=== PATIENT | male | born 1955 | race African-American/Black ===

== ENCOUNTER 2024-07-09 10:17 | Emergency (ER) | payer MEDICAID ==
[~2024-07-09] VITALS: Ht 188 cm; Wt 65.8 kg
[2024-07-09 10:21] VITALS: O2SAT 100
[2024-07-09] MEDS ORDERED: IBUP-2028 MT (10:53)
[2024-07-09 11:03] VITALS: BP 119/71; PULSE 71; RESP 16; TEMP 36.78072; O2SAT 100
== END 2024-07-09 11:04 | disposition home or self-care (01) ==
LOC: ER 10:17
DX: K62.89 Other specified diseases of anus and rectum (principal); W44.F4XA Insect entering into or through a natural orifice, initial encounter
CPT/HCPCS: 99282

== ENCOUNTER 2024-07-11 08:14 | Emergency (ER) | payer MEDICAID ==
[~2024-07-11] VITALS: Ht 188 cm; Wt 68.0 kg
[~2024-07-11 08:14] MED LIST: IBUP-2028 MT
[2024-07-11 08:17] VITALS: BP 132/84; PULSE 50; RESP 16; TEMP 98; O2SAT 95
[2024-07-11] MEDS ORDERED: MAG355OR21 MT (13:13)
[2024-07-11] MEDS ORDERED: PHEN51CR24 TP (13:13)
== END 2024-07-11 13:59 | disposition home or self-care (01) ==
LOC: ER 08:26
DX: K52.9 Noninfective gastroenteritis and colitis, unspecified (principal); K64.9 Unspecified hemorrhoids; Z79.899 Other long term (current) drug therapy
CPT/HCPCS: 74176; 99284

== ENCOUNTER 2024-07-14 04:59 | Emergency (ER) | payer MEDICAID ==
[~2024-07-14] VITALS: Ht 182.9 cm; Wt 64.0 kg
[~2024-07-14 04:59] MED LIST changes: +MAG355OR21 MT; +PHEN51CR24 TP
[2024-07-14 05:04] VITALS: O2SAT 99
[2024-07-14 05:10] VITALS: BP 101/67; PULSE 72; RESP 18; TEMP 98; O2SAT 99
[2024-07-14 05:35] LABS: BASOPHILS % 0.8 % (0.0-2.0); EOSINOPHILS % 7.8 % (0.0-5.0); HEMOGLOBIN. 14.3 g/dL (14.0-18.0); LYMPHOCYTES % 24.7 % (20.0-50.0); MEAN CORPUSCULAR HEMOGLOBIN 30.6 pg (28.0-32.0); MEAN CORPUSCULAR HGB CONC 33.2 g/dL (31.0-37.0); MEAN CORPUSCULAR VOLUME 92.3 fL (80.0-94.0); MEAN PLATELET VOLUME 7.4 fl (7.4-10.4); MONOCYTES % 9.7 % (2.0-8.0); PLATELET 257 x1000/uL (130-400); RED BLOOD CELL COUNT 4.66 mill/uL (4.7-6.1); RED CELL DISTRIBUTION WIDTH 15.2 % (11.6-14.6); WHITE BLOOD COUNT 6.4 x1000/uL (4.5-11.0)
[2024-07-14 05:58] LABS: CHLORIDE 108 mEq/L (98-107); POTASSIUM 4.1 mEq/L (3.5-5.1); SODIUM 140 mEq/L (136-145)
[2024-07-14 05:59] LABS: CARBON DIOXIDE 27 mEq/L (21-32)
[2024-07-14 06:00] LABS: CALCIUM 9.6 mg/dL (8.7-10.4)
[2024-07-14 06:05] LABS: GLUCOSE 95 mg/dL (70-105); UREA NITROGEN BLOOD 15 mg/dL (9-23)
[2024-07-14 06:06] LABS: ALANINE AMINOTRANSFERASE 16 IU/L (10-49); ALBUMIN 4.2 g/dL (3.2-4.8); ASPARTATE AMINOTRANSFERASE 22 IU/L (<34)
[2024-07-14 06:07] LABS: BILIRUBIN TOTAL 0.4 mg/dL (0.1-1.0); PROTEIN TOTAL 7.1 g/dL (6.0-8.3)
[2024-07-14 06:29] LABS: BILIRUBIN DIRECT < 0.1 mg/dL (<=3.0)
== END 2024-07-14 07:13 | disposition home or self-care (01) ==
LOC: ER 05:10
DX: R10.9 Unspecified abdominal pain (principal)
CPT/HCPCS: 36415; 80048; 80076; 85025; 99283

== ENCOUNTER 2024-07-15 04:33 | Emergency (ER) | payer MEDICAID ==
[~2024-07-15] VITALS: Ht 182.9 cm; Wt 60.6 kg
[2024-07-15 05:09] VITALS: TEMP 98.6; O2SAT 97
[2024-07-15 06:00] VITALS: BP 114/72; PULSE 79; RESP 15
[2024-07-15] MEDS: KETOROLAC 30MG/ML VIAL IV STA (06:00)
[2024-07-15 06:25] LABS: BASOPHILS % 0.8 % (0.0-2.0); EOSINOPHILS % 3.9 % (0.0-5.0); HEMATOCRIT. 45.2 % (42.0-52.0); HEMOGLOBIN. 14.7 g/dL (14.0-18.0); LYMPHOCYTES % 18.1 % (20.0-50.0); MEAN CORPUSCULAR HEMOGLOBIN 30.1 pg (28.0-32.0); MEAN CORPUSCULAR HGB CONC 32.4 g/dL (31.0-37.0); MEAN CORPUSCULAR VOLUME 92.8 fL (80.0-94.0); MEAN PLATELET VOLUME 8.1 fl (7.4-10.4); MONOCYTES % 7.9 % (2.0-8.0); NEUTROPHILS % 69.3 % (40.0-76.0); PLATELET 261 x1000/uL (130-400); RED BLOOD CELL COUNT 4.88 mill/uL (4.7-6.1); RED CELL DISTRIBUTION WIDTH 15.1 % (11.6-14.6); WHITE BLOOD COUNT 6.1 x1000/uL (4.5-11.0)
[2024-07-15 06:30] LABS: CHLORIDE 106 mEq/L (98-107); POTASSIUM 4.3 mEq/L (3.5-5.1); SODIUM 140 mEq/L (136-145)
[2024-07-15 06:31] LABS: CARBON DIOXIDE 30 mEq/L (21-32)
[2024-07-15 06:36] LABS: CREATININE 0.9 mg/dL (0.6-1.3); GLUCOSE 83 mg/dL (70-105)
[2024-07-15 06:37] LABS: UREA NITROGEN BLOOD 13 mg/dL (9-23)
[2024-07-15 06:38] LABS: ALANINE AMINOTRANSFERASE 15 IU/L (10-49); ALBUMIN 4.4 g/dL (3.2-4.8); ASPARTATE AMINOTRANSFERASE 19 IU/L (<34)
[2024-07-15 06:39] LABS: BILIRUBIN DIRECT 0.2 mg/dL (<=3.0); BILIRUBIN TOTAL 0.6 mg/dL (0.1-1.0); PROTEIN TOTAL 7.1 g/dL (6.0-8.3); TROPONIN I HIGH SENSITIVITY 5 ng/L (3.0-53)
== END 2024-07-15 07:44 | disposition home or self-care (01) ==
LOC: ER 04:53
DX: R07.89 Other chest pain (principal); R10.9 Unspecified abdominal pain
CPT/HCPCS: 36415; 71045; 80048; 80076; 84484; 85025; 93005; 99285; J1885

== ENCOUNTER 2024-07-22 19:13 | Emergency (ER) | payer MEDICAID ==
[~2024-07-22] VITALS: Ht 188 cm; Wt 64.3 kg
[2024-07-22 19:29] VITALS: O2SAT 99
[2024-07-23 01:06] LABS: BASOPHILS % 0.4 % (0.0-2.0); EOSINOPHILS % 5.2 % (0.0-5.0); HEMOGLOBIN. 14.5 g/dL (14.0-18.0); LYMPHOCYTES % 28.8 % (20.0-50.0); MEAN CORPUSCULAR HGB CONC 33.6 g/dL (31.0-37.0); MEAN CORPUSCULAR VOLUME 92.3 fL (80.0-94.0); MEAN PLATELET VOLUME 7.5 fl (7.4-10.4); MONOCYTES % 8.6 % (2.0-8.0); PLATELET 271 x1000/uL (130-400); RED BLOOD CELL COUNT 4.66 mill/uL (4.7-6.1); RED CELL DISTRIBUTION WIDTH 14.8 % (11.6-14.6); WHITE BLOOD COUNT 6.1 x1000/uL (4.5-11.0)
[2024-07-23 01:17] LABS: CHLORIDE 104 mEq/L (98-107); POTASSIUM 4.1 mEq/L (3.5-5.1); SODIUM 137 mEq/L (136-145)
[2024-07-23 01:18] LABS: CALCIUM 9.8 mg/dL (8.7-10.4); CARBON DIOXIDE 28 mEq/L (21-32)
[2024-07-23 01:23] LABS: CREATININE 0.8 mg/dL (0.6-1.3); GLUCOSE 72 mg/dL (70-105); UREA NITROGEN BLOOD 14 mg/dL (9-23)
[2024-07-23 01:24] LABS: TROPONIN I HIGH SENSITIVITY 4 ng/L (3.0-53)
[2024-07-23 01:25] LABS: ALANINE AMINOTRANSFERASE 14 IU/L (10-49); ALBUMIN 4.2 g/dL (3.2-4.8); ASPARTATE AMINOTRANSFERASE 21 IU/L (<34); BILIRUBIN DIRECT 0.1 mg/dL (<=3.0); BILIRUBIN TOTAL 0.5 mg/dL (0.1-1.0)
[2024-07-23 01:26] LABS: PROTEIN TOTAL 6.9 g/dL (6.0-8.3)
[2024-07-23 01:54] LABS: D-DIMER 0.24 mg/L FEU (<0.50); PROTHROMBIN TIME 10.7 sec (9.6-11.0)
[2024-07-23 03:42] LABS: CLARITY URINE CLEAR (CLEAR); COLOR URINE YELLOW (YELLOW); GLUCOSE URINE NEGATIVE (NEGATIVE); KETONES URINE NEGATIVE (NEGATIVE); LEUKOCYTE ESTERASE URINE TRACE (NEGATIVE); NITRITE URINE POSITIVE (NEGATIVE); OCCULT BLOOD URINE NEGATIVE (NEGATIVE); PH URINE 5.5 (4.5-8.0); PROTEIN URINE TRACE (NEGATIVE); SPECIFIC GRAVITY URINE 1.022 (1.005-1.030)
[2024-07-23] MEDS ORDERED: POLY17PO3 MT (05:23)
[2024-07-23 05:40] VITALS: BP 110/68; PULSE 74; RESP 16; TEMP 36.94740; O2SAT 100
[2024-07-23 05:40] LABS: RBC URINE 0-2 /hpf (0-2); SQUAMOUS EPITHELIAL CELL URINE FEW /lpf (RARE/1+); WBC URINE 0-2 /hpf (0-2)
[2024-07-23 05:42] LABS: BACTERIA URINE 3+
[2024-07-23] MEDS ORDERED: SULF1TAB48 MT (13:54)
== END 2024-07-23 05:40 | disposition home or self-care (01) ==
LOC: ER 19:13
DX: N39.0 Urinary tract infection, site not specified (principal)
CPT/HCPCS: 36415; 71045; 74176; 93005; 99284; 99285

== ENCOUNTER 2024-08-12 08:01 | Emergency (ER) | payer MEDICAID ==
[~2024-08-12] VITALS: Ht 188 cm; Wt 63.5 kg
[~2024-08-12 08:01] MED LIST changes: +POLY17PO3 MT; +SULF1TAB48 MT
[2024-08-12 08:03] VITALS: BP 112/76; TEMP 98; O2SAT 99
[2024-08-12 08:11] VITALS: PULSE 75; RESP 18; O2SAT 93
[2024-08-12] MEDS ORDERED: PERM60CR4 TP (08:30)
== END 2024-08-12 08:38 | disposition home or self-care (01) ==
LOC: ER 08:01
DX: R10.9 Unspecified abdominal pain (principal); Z79.899 Other long term (current) drug therapy; Z59.00 Homelessness unspecified
CPT/HCPCS: 99282

== ENCOUNTER 2024-08-12 18:15 | Emergency (ER) | payer MEDICAID ==
[~2024-08-12] VITALS: Ht 188 cm; Wt 63.5 kg
[~2024-08-12 18:15] MED LIST changes: +PERM60CR4 TP
[2024-08-12 18:20] VITALS: BP 108/72; PULSE 97; RESP 18; TEMP 98.1; O2SAT 98; O2SAT 99
== END 2024-08-12 19:20 ==
LOC: ER 18:15
DX: R10.9 Unspecified abdominal pain (principal); Z53.21 Procedure and treatment not carried out due to patient leaving prior to being seen by health care provider

== ENCOUNTER 2024-08-13 01:57 | Emergency (ER) | payer MEDICAID ==
[~2024-08-13] VITALS: Ht 188 cm; Wt 66.1 kg
[2024-08-13 02:22] VITALS: TEMP 36.66960; O2SAT 100
[2024-08-13 02:26] VITALS: BP 120/78; PULSE 76; RESP 18; O2SAT 100
[2024-08-13 02:52] VITALS: TEMP 98
[2024-08-13] MEDS: ACETAMINOPHEN 325MG TABLET PO ONE (02:52)
[2024-08-13 03:06] LABS: BASOPHILS % 0.7 % (0.0-2.0); HEMATOCRIT. 44.5 % (42.0-52.0); HEMOGLOBIN. 14.8 g/dL (14.0-18.0); LYMPHOCYTES % 21.6 % (20.0-50.0); MEAN CORPUSCULAR HEMOGLOBIN 30.9 pg (28.0-32.0); MEAN CORPUSCULAR HGB CONC 33.3 g/dL (31.0-37.0); MEAN PLATELET VOLUME 7.2 fl (7.4-10.4); MONOCYTES % 7.6 % (2.0-8.0); NEUTROPHILS % 67.1 % (40.0-76.0); PLATELET 246 x1000/uL (130-400); RED BLOOD CELL COUNT 4.79 mill/uL (4.7-6.1); RED CELL DISTRIBUTION WIDTH 15.6 % (11.6-14.6); WHITE BLOOD COUNT 6.2 x1000/uL (4.5-11.0)
[2024-08-13 03:13] LABS: CHLORIDE 106 mEq/L (98-107); POTASSIUM 4.1 mEq/L (3.5-5.1); SODIUM 142 mEq/L (136-145)
[2024-08-13 03:14] LABS: CALCIUM 10.1 mg/dL (8.7-10.4); CARBON DIOXIDE 32 mEq/L (21-32)
[2024-08-13 03:19] LABS: CREATININE 1.2 mg/dL (0.6-1.3); GLUCOSE 88 mg/dL (70-105); UREA NITROGEN BLOOD 16 mg/dL (9-23)
[2024-08-13 03:21] LABS: ALANINE AMINOTRANSFERASE 23 IU/L (10-49); ALBUMIN 4.6 g/dL (3.2-4.8); ASPARTATE AMINOTRANSFERASE 29 IU/L (<34); BILIRUBIN TOTAL 0.5 mg/dL (0.1-1.0); PROTEIN TOTAL 7.2 g/dL (6.0-8.3); TROPONIN I HIGH SENSITIVITY 7 ng/L (3.0-53)
[2024-08-13 03:47] LABS: CLARITY URINE CLEAR (CLEAR); COLOR URINE YELLOW (YELLOW); GLUCOSE URINE NEGATIVE (NEGATIVE); KETONES URINE NEGATIVE (NEGATIVE); LEUKOCYTE ESTERASE URINE NEGATIVE (NEGATIVE); NITRITE URINE NEGATIVE (NEGATIVE); OCCULT BLOOD URINE NEGATIVE (NEGATIVE); PROTEIN URINE NEGATIVE (NEGATIVE); UROBILINOGEN URINE 0.2 E.U./dL (0.2-1.0)
[2024-08-13 03:54] LABS: *AMPHETAMINES SCREEN URINE NEGATIVE (NEGATIVE); *BENZODIAZEPINES SCREEN URINE NEGATIVE (NEGATIVE)
[2024-08-13 03:55] LABS: *BARBITURATES SCREEN URINE NEGATIVE (NEGATIVE); *COCAINE SCREEN URINE NEGATIVE (NEGATIVE); CANNABINOID URINE SCREEN NEGATIVE (NEGATIVE); ECSTASY MDMA SCREEN URINE NEGATIVE (NEGATIVE); METHADONE URINE SCREEN NEGATIVE (NEGATIVE); OPIATES URINE SCREEN NEGATIVE (NEGATIVE); PHENCYCLIDINE URINE SCREEN NEGATIVE (NEGATIVE)
== END 2024-08-13 04:15 | disposition home or self-care (01) ==
LOC: ER 01:57
DX: R10.9 Unspecified abdominal pain (principal); R07.89 Other chest pain; Z79.899 Other long term (current) drug therapy
CPT/HCPCS: 36415; 71045; 74176; 80053; 80305; 81003; 84484; 85025; 93005; 99285

== ENCOUNTER 2024-08-13 04:46 | Emergency (ER) | payer MEDICAID | END 2024-08-13 05:40 | disposition left against medical advice (07) | LOC: ER 04:46 | DX: Z53.21 Procedure and treatment not carried out due to patient leaving prior to being seen by health care provider (principal) ==

== ENCOUNTER 2024-08-23 08:55 | Emergency (ER) | payer MEDICAID ==
[~2024-08-23] VITALS: Ht 188 cm; Wt 63.3 kg
[2024-08-23 09:10] VITALS: O2SAT 98
[2024-08-23 09:48] LABS: BASOPHILS % 0.9 % (0.0-2.0); EOSINOPHILS % 1.3 % (0.0-5.0); HEMOGLOBIN. 14.5 g/dL (14.0-18.0); LYMPHOCYTES % 23.8 % (20.0-50.0); MEAN CORPUSCULAR HEMOGLOBIN 30.4 pg (28.0-32.0); MEAN CORPUSCULAR HGB CONC 32.9 g/dL (31.0-37.0); MEAN CORPUSCULAR VOLUME 92.6 fL (80.0-94.0); MEAN PLATELET VOLUME 7.2 fl (7.4-10.4); MONOCYTES % 6.8 % (2.0-8.0); NEUTROPHILS % 67.2 % (40.0-76.0); PLATELET 226 x1000/uL (130-400); RED BLOOD CELL COUNT 4.75 mill/uL (4.7-6.1); RED CELL DISTRIBUTION WIDTH 15.1 % (11.6-14.6); WHITE BLOOD COUNT 5.1 x1000/uL (4.5-11.0)
[2024-08-23 10:22] LABS: CARBON DIOXIDE 27 mEq/L (21-32); CHLORIDE 107 mEq/L (98-107); SODIUM 140 mEq/L (136-145)
[2024-08-23 10:23] LABS: CALCIUM 9.6 mg/dL (8.7-10.4)
[2024-08-23 10:28] LABS: CREATININE 0.9 mg/dL (0.6-1.3); GLUCOSE 105 mg/dL (70-105); TROPONIN I HIGH SENSITIVITY 6 ng/L (3.0-53); UREA NITROGEN BLOOD 14 mg/dL (9-23)
[2024-08-23] MEDS: KETOROLAC 30MG/ML VIAL IV ONE (11:11)
[2024-08-23 13:39] VITALS: BP 145/88; PULSE 74; RESP 16; TEMP 36.55848; O2SAT 98
[2024-08-23] MEDS ORDERED: PERM60CR4 TP (13:54)
[2024-08-23] MEDS ORDERED: IOHEXOL-300 100 ML BOTTLE ONE (15:10)
== END 2024-08-23 13:40 | disposition home or self-care (01) ==
LOC: ER 08:55
DX: K46.9 Unspecified abdominal hernia without obstruction or gangrene (principal); Z79.899 Other long term (current) drug therapy
CPT/HCPCS: 99285; 74177; 71045; 80048; 83690; 85025; 84484; 36415; 93005; Q9967; J1885

== ENCOUNTER 2024-08-26 22:15 | Emergency (ER) | payer MEDICAID ==
[~2024-08-26] VITALS: Ht 188 cm; Wt 63.5 kg
[2024-08-26 22:22] VITALS: O2SAT 97
[2024-08-26 22:48] VITALS: BP 101/51; PULSE 72; RESP 16; TEMP 98.2; O2SAT 97
[2024-08-27 00:30] LABS: BASOPHILS % 0.6 % (0.0-2.0); EOSINOPHILS % 2.3 % (0.0-5.0); HEMATOCRIT. 38.1 % (42.0-52.0); HEMOGLOBIN. 12.7 g/dL (14.0-18.0); LYMPHOCYTES % 25.5 % (20.0-50.0); MEAN CORPUSCULAR HEMOGLOBIN 30.9 pg (28.0-32.0); MEAN CORPUSCULAR HGB CONC 33.4 g/dL (31.0-37.0); MEAN CORPUSCULAR VOLUME 92.8 fL (80.0-94.0); MEAN PLATELET VOLUME 7.3 fl (7.4-10.4); MONOCYTES % 8.5 % (2.0-8.0); NEUTROPHILS % 63.1 % (40.0-76.0); PLATELET 226 x1000/uL (130-400); RED CELL DISTRIBUTION WIDTH 14.9 % (11.6-14.6); WHITE BLOOD COUNT 5.8 x1000/uL (4.5-11.0)
[2024-08-27 00:40] LABS: INR 0.9; PROTHROMBIN TIME 10.4 sec (9.6-11.0)
[2024-08-27 00:59] LABS: CHLORIDE 110 mEq/L (98-107); POTASSIUM 3.7 mEq/L (3.5-5.1); SODIUM 143 mEq/L (136-145)
[2024-08-27 01:00] LABS: CALCIUM 9.2 mg/dL (8.7-10.4); CARBON DIOXIDE 26 mEq/L (21-32)
[2024-08-27 01:05] LABS: GLUCOSE 110 mg/dL (70-105); UREA NITROGEN BLOOD 12 mg/dL (9-23)
[2024-08-27 01:06] LABS: TROPONIN I HIGH SENSITIVITY 6 ng/L (3.0-53)
[2024-08-27 01:07] LABS: ALANINE AMINOTRANSFERASE 13 IU/L (10-49); ASPARTATE AMINOTRANSFERASE 18 IU/L (<34); BILIRUBIN DIRECT 0.1 mg/dL (<=3.0); BILIRUBIN TOTAL 0.5 mg/dL (0.1-1.0); PROTEIN TOTAL 6.3 g/dL (6.0-8.3)
[2024-08-27] MEDS ORDERED: DOCU-155 MT (05:46)
[2024-08-27 07:20] LABS: CLARITY URINE CLEAR (CLEAR); COLOR URINE YELLOW (YELLOW)
[2024-08-27 07:21] LABS: GLUCOSE URINE NEGATIVE (NEGATIVE); KETONES URINE TRACE (NEGATIVE); LEUKOCYTE ESTERASE URINE NEGATIVE (NEGATIVE); NITRITE URINE NEGATIVE (NEGATIVE); OCCULT BLOOD URINE NEGATIVE (NEGATIVE); PH URINE 5.5 (4.5-8.0); PROTEIN URINE TRACE (NEGATIVE); SPECIFIC GRAVITY URINE 1.023 (1.005-1.030)
[2024-08-27 07:43] LABS: BACTERIA URINE NONE SEEN; CALCIUM OXALATE CRYSTALS URINE 1+ /lpf; RBC URINE 0-2 /hpf (0-2); SQUAMOUS EPITHELIAL CELL URINE NONE SEEN /lpf (RARE/1+); WBC URINE 0-2 /hpf (0-2)
== END 2024-08-27 06:00 | disposition left against medical advice (07) ==
LOC: ER 22:15
DX: K59.00 Constipation, unspecified (principal); R10.9 Unspecified abdominal pain; Z79.899 Other long term (current) drug therapy
CPT/HCPCS: 36415; 71045; 80048; 80076; 81003; 83880; 84484; 85025; 93005; 99285

== ENCOUNTER 2024-08-31 03:23 | Emergency (ER) | payer MEDICAID ==
[~2024-08-31] VITALS: Ht 188 cm; Wt 63.0 kg
[~2024-08-31 03:23] MED LIST changes: +DOCU-155 MT
[2024-08-31 03:27] VITALS: BP 109/77; PULSE 56; RESP 16; TEMP 97.8; O2SAT 99
[2024-08-31] MEDS ORDERED: POLYETHYLENE GLYCOL 3350 (17GM) 1 DOSE PACK PO ONE (04:00)
[2024-10-03] MEDS ORDERED: IBUP-2028 MT (13:09)
[2024-10-03] MEDS ORDERED: TOPUD PO (13:09)
== END 2024-08-31 06:12 | disposition left against medical advice (07) ==
LOC: ER 03:23
DX: K59.00 Constipation, unspecified (principal); Z79.899 Other long term (current) drug therapy
CPT/HCPCS: 93005; 99282; 99283

== ENCOUNTER 2024-09-01 11:11 | Emergency (ER) | payer SELFPAY ==
[~2024-09-01] VITALS: Ht 177.8 cm; Wt 66.0 kg
[2024-09-01 11:25] VITALS: BP 109/66; PULSE 61; RESP 18; TEMP 98.1; O2SAT 99
== END 2024-09-01 12:50 | disposition left against medical advice (07) ==
LOC: ER 11:11
DX: R68.89 Other general symptoms and signs (principal); Z53.21 Procedure and treatment not carried out due to patient leaving prior to being seen by health care provider

== ENCOUNTER 2024-09-05 09:40 | Inpatient (IN) | payer SELFPAY ==
[~2024-09-05] VITALS: Ht 198.1 cm; Wt 58.1 kg
[2024-09-05 10:02] VITALS: O2SAT 97
[2024-09-05] MEDS ORDERED: NITROGLYCERIN 0.4MG TABLET SL SL PRN (11:30)
[2024-09-05 12:34] LABS: EOSINOPHILS % 3.1 % (0.0-5.0); HEMATOCRIT. 38.9 % (42.0-52.0); HEMOGLOBIN. 12.8 g/dL (14.0-18.0); LYMPHOCYTES % 27.9 % (20.0-50.0); MEAN CORPUSCULAR HEMOGLOBIN 30.4 pg (28.0-32.0); MEAN CORPUSCULAR HGB CONC 32.9 g/dL (31.0-37.0); MEAN CORPUSCULAR VOLUME 92.2 fL (80.0-94.0); MEAN PLATELET VOLUME 7.4 fl (7.4-10.4); MONOCYTES % 8.4 % (2.0-8.0); NEUTROPHILS % 59.6 % (40.0-76.0); PLATELET 238 x1000/uL (130-400); RED BLOOD CELL COUNT 4.22 mill/uL (4.7-6.1); RED CELL DISTRIBUTION WIDTH 15.3 % (11.6-14.6); WHITE BLOOD COUNT 5.2 x1000/uL (4.5-11.0)
[2024-09-05 12:41] LABS: CHLORIDE 109 mEq/L (98-107); POTASSIUM 3.6 mEq/L (3.5-5.1); SODIUM 144 mEq/L (136-145)
[2024-09-05 12:42] LABS: CALCIUM 9.3 mg/dL (8.7-10.4); CARBON DIOXIDE 31 mEq/L (21-32)
[2024-09-05 12:47] LABS: CREATININE 0.8 mg/dL (0.6-1.3); GLUCOSE 84 mg/dL (70-105); UREA NITROGEN BLOOD 8 mg/dL (9-23)
[2024-09-05 12:49] LABS: TROPONIN I HIGH SENSITIVITY 11 ng/L (3.0-53)
[2024-09-05] MEDS: ASPIRIN 81MG TABLET PO ONE (13:07)
[2024-09-05] MEDS: ASPIRIN 81MG TABLET PO NR (13:07)
[2024-09-05 15:02] LABS: TROPONIN I HIGH SENSITIVITY 11 ng/L (3.0-53)
[2024-09-05 19:15] LABS: TROPONIN I HIGH SENSITIVITY 9 ng/L (3.0-53)
[2024-09-05] MEDS ORDERED: GUAIFENESIN 200MG/10ML SUGAR FREE UDC PO PRN (19:30)
[2024-09-05] MEDS ORDERED: ONDANSETRON HCL 4MG/2ML INJ IV PRN (19:30)
[2024-09-05] MEDS ORDERED: IPRATROPIUM/ALBUTEROL 0.5-3(2.5)MG/3ML NEB HHN PRN (19:30)
[2024-09-05] MEDS ORDERED: MAGNESIUM/ALUMINUM HYDROXIDE/SIMETHICONE 30ML UDC PO PRN (19:30)
[2024-09-05] MEDS ORDERED: ACETAMINOPHEN 325MG TABLET PO PRN ×2 (19:30)
[2024-09-05] MEDS ORDERED: DOCUSATE SODIUM 100MG CAPSULE PO PRN (19:30)
[2024-09-05 20:00] VITALS: BP 107/61; PULSE 51; RESP 20; TEMP 36.50292; O2SAT 98
[2024-09-05 20:16] VITALS: BP 107/61; PULSE 51; RESP 20; TEMP 36.8072
[2024-09-05] MEDS: ENOXAPARIN 40MG/0.4ML SYR SUBCUT SCH (20:54)
[2024-09-06] VITALS: BP 117/70; PULSE 69; RESP 18; TEMP 37.00296; O2SAT 99
[2024-09-06 00:09] LABS: CREATINE KINASE 154 IU/L (46-171); TROPONIN I HIGH SENSITIVITY 9 ng/L (3.0-53)
[2024-09-06 04:00] VITALS: BP 118/71; PULSE 52; RESP 18; TEMP 36.6696; O2SAT 98
[2024-09-06 08:00] VITALS: BP 100/58; PULSE 55; RESP 20; TEMP 36.72516; O2SAT 98
[2024-09-06] MEDS: THIAMINE HCL 100MG TABLET PO SCH (08:24)
[2024-09-06] MEDS: FOLIC ACID 1MG TABLET PO SCH (08:24)
[2024-09-06] MEDS: ASPIRIN 81MG TABLET PO SCH (11:31)
[2024-09-06 12:00] VITALS: BP 99/61; PULSE 50; RESP 18; TEMP 36.6696; O2SAT 96
[2024-09-06 12:38] LABS: BASOPHILS % 0.5 % (0.0-2.0); EOSINOPHILS % 3.6 % (0.0-5.0); HEMATOCRIT. 38.8 % (42.0-52.0); HEMOGLOBIN. 12.9 g/dL (14.0-18.0); LYMPHOCYTES % 29.9 % (20.0-50.0); MEAN CORPUSCULAR HEMOGLOBIN 30.7 pg (28.0-32.0); MEAN CORPUSCULAR HGB CONC 33.3 g/dL (31.0-37.0); MEAN CORPUSCULAR VOLUME 92.4 fL (80.0-94.0); MEAN PLATELET VOLUME 7.9 fl (7.4-10.4); MONOCYTES % 7.1 % (2.0-8.0); NEUTROPHILS % 58.9 % (40.0-76.0); PLATELET 218 x1000/uL (130-400); RED CELL DISTRIBUTION WIDTH 15.5 % (11.6-14.6); WHITE BLOOD COUNT 4.9 x1000/uL (4.5-11.0)
[2024-09-06 12:54] LABS: CHLORIDE 108 mEq/L (98-107); POTASSIUM 4.2 mEq/L (3.5-5.1); SODIUM 142 mEq/L (136-145)
[2024-09-06 12:55] LABS: CALCIUM 9.1 mg/dL (8.7-10.4); CARBON DIOXIDE 25 mEq/L (21-32)
[2024-09-06 12:59] LABS: IRON 87 ug/dL (65-175)
[2024-09-06 13:00] LABS: CREATININE 0.9 mg/dL (0.6-1.3); GLUCOSE 115 mg/dL (70-105); TRIGLYCERIDE 62 mg/dL (0-150); TROPONIN I HIGH SENSITIVITY 8 ng/L (3.0-53); UREA NITROGEN BLOOD 11 mg/dL (9-23)
[2024-09-06 13:01] LABS: CREATINE KINASE 154 IU/L (46-171); LDL CHOLESTEROL 65 mg/dL (5-100)
[2024-09-06 13:02] LABS: ALANINE AMINOTRANSFERASE 19 IU/L (10-49); ALBUMIN 3.8 g/dL (3.2-4.8); ASPARTATE AMINOTRANSFERASE 21 IU/L (<34); BILIRUBIN TOTAL 0.4 mg/dL (0.1-1.0); CHOLESTEROL 153 mg/dL (<200); HDL CHOLESTEROL 72 mg/dL (>55); PHOSPHORUS 2.9 mg/dL (2.5-4.9)
[2024-09-06 13:03] LABS: PROTEIN TOTAL 6.1 g/dL (6.0-8.3); T4 FREE 1.38 ng/dL (0.89-1.76); TOTAL IRON BINDING CAPACITY 258 ug/dl (250-425)
[2024-09-06 13:04] LABS: THYROID STIMULATING HORMONE 0.27 uIU/mL (0.55-4.78)
[2024-09-06 16:00] VITALS: BP 107/61; PULSE 57; RESP 20; TEMP 36.78072; O2SAT 95
[2024-09-06 18:31] LABS: VITAMIN B12 SERUM 321 pg/mL (211-911)
[2024-09-06 18:33] LABS: FERRITIN 165 ng/mL (22-322); FOLIC ACID (FOLATE) SERUM > 20.00 ng/mL (>5.38)
[2024-09-06] MEDS ORDERED: FAMOTIDINE 20MG TABLET PO SCH (21:00)
== END 2024-09-06 22:27 | disposition home or self-care (01) | DRG 203 ==
LOC: ER 09:40 → EDBEDREQ 16:15 → 5WST 19:15
PROVIDERS: ADMIT Preventive Medicine Clinical Informatics; ATTEND Preventive Medicine Clinical Informatics
DX: R07.2 Precordial pain (principal); D64.9 Anemia, unspecified; G89.29 Other chronic pain; N28.1 Cyst of kidney, acquired; R10.84 Generalized abdominal pain; Z79.899 Other long term (current) drug therapy; Z59.00 Homelessness unspecified
CPT/HCPCS: 36415; 71045; 80048; 80053; 80061; 82550; 82607; 82728; 82746; 83540; 83550; 83735; 83880; 84100; 84439; 84443; 84484; 85025; 85044; 85379; 93005; 93306; 93970; 99285; A4606; A4663; J1650

== ENCOUNTER 2024-09-18 12:34 | Emergency (ER) | payer MEDICAID ==
[~2024-09-18] VITALS: Ht 188 cm; Wt 61.0 kg
[~2024-09-18 12:34] MED LIST changes: -IBUP-2028 MT; -MAG355OR21 MT; -PERM60CR4 TP; -PHEN51CR24 TP; -POLY17PO3 MT; -SULF1TAB48 MT
[2024-09-18 12:50] VITALS: BP 115/76; PULSE 85; RESP 18; TEMP 98.5; O2SAT 98
[2024-09-18] MEDS ORDERED: LORAZEPAM 1MG TABLET PO ONE (15:45)
== END 2024-09-18 17:54 | disposition left against medical advice (07) ==
LOC: ER 12:34
DX: R44.3 Hallucinations, unspecified (principal); Z87.19 Personal history of other diseases of the digestive system
CPT/HCPCS: 99282; 99284

== ENCOUNTER 2024-09-21 11:00 | Emergency (ER) | payer MEDICAID ==
[~2024-09-21] VITALS: Ht 188 cm; Wt 61.2 kg
[2024-09-21 11:07] VITALS: O2SAT 98
[2024-09-21] MEDS ORDERED: CEPH500C2 MT (18:56)
[2024-09-21] MEDS ORDERED: HYDR26CR2 TP (18:56)
[2024-09-21] MEDS ORDERED: BO1 TP (18:56)
[2024-09-21 20:11] VITALS: BP 115/79; PULSE 71; RESP 20; TEMP 36.72516; O2SAT 100
[2024-09-21] MEDS: BACITRACIN ZINC OINT UDPKT TOP ONE (20:11)
== END 2024-09-21 21:09 | disposition home or self-care (01) ==
LOC: ER 11:00
DX: S71.119A Laceration without foreign body, unspecified thigh, initial encounter (principal); K64.9 Unspecified hemorrhoids; X58.XXXA Exposure to other specified factors, initial encounter; Y93.89 Activity, other specified; Y92.89 Other specified places as the place of occurrence of the external cause; Y99.8 Other external cause status
CPT/HCPCS: 99283

== ENCOUNTER 2024-09-28 02:17 | Emergency (ER) | payer MEDICAID ==
[~2024-09-28] VITALS: Ht 180.3 cm; Wt 64.5 kg
[~2024-09-28 02:17] MED LIST changes: +BO1 TP; +CEPH500C2 MT; +HYDR26CR2 TP
[2024-09-28 02:46] VITALS: O2SAT 98
[2024-09-28 02:51] VITALS: BP 111/74; PULSE 78; RESP 14; TEMP 37.1; O2SAT 97
[2024-09-28] MEDS ORDERED: HYDR26CR2 TP (05:45)
== END 2024-09-28 07:56 | disposition home or self-care (01) ==
LOC: ER 02:28
DX: K64.9 Unspecified hemorrhoids (principal); Z79.899 Other long term (current) drug therapy
CPT/HCPCS: 99282

== ENCOUNTER 2024-09-29 23:11 | Emergency (ER) | payer MEDICAID ==
[~2024-09-29] VITALS: Ht 172.7 cm; Wt 64.0 kg
[2024-09-30 00:04] VITALS: BP 131/81; TEMP 36.8; O2SAT 100
[2024-09-30 00:11] VITALS: PULSE 62; RESP 18; O2SAT 98
[2024-10-03] MEDS ORDERED: TOPUD PO (13:09)
[2024-10-03] MEDS ORDERED: IBUP-2028 MT (13:09)
== END 2024-09-30 01:25 | disposition home or self-care (01) ==
LOC: ER 23:11
DX: S60.411A Abrasion of left index finger, initial encounter (principal); F20.9 Schizophrenia, unspecified; X58.XXXA Exposure to other specified factors, initial encounter; Y93.89 Activity, other specified; Y92.89 Other specified places as the place of occurrence of the external cause; Y99.8 Other external cause status
CPT/HCPCS: 99281; 99291

== ENCOUNTER 2024-10-07 05:10 | Emergency (ER) | payer OTHER ==
[~2024-10-07] VITALS: Ht 182.9 cm; Wt 63.0 kg
[~2024-10-07 05:10] MED LIST changes: +IBUP-2028 MT; +TOPUD PO
[2024-10-07 05:26] VITALS: BP 147/84; PULSE 70; RESP 16; TEMP 36.9; O2SAT 98
[2024-10-07 06:40] VITALS: TEMP 98.5
[2024-10-07] MEDS: ACETAMINOPHEN 325MG TABLET PO ONE (06:40)
[2024-10-07 07:32] LABS: CHLORIDE 107 mEq/L (98-107); SODIUM 141 mEq/L (136-145)
[2024-10-07 07:34] LABS: BASOPHILS % 0.9 % (0.0-2.0); CALCIUM 9.3 mg/dL (8.7-10.4); CARBON DIOXIDE 30 mEq/L (21-32); EOSINOPHILS % 5.4 % (0.0-5.0); HEMATOCRIT. 39.8 % (42.0-52.0); LYMPHOCYTES % 21.6 % (20.0-50.0); MEAN CORPUSCULAR HEMOGLOBIN 29.9 pg (28.0-32.0); MEAN CORPUSCULAR HGB CONC 32.7 g/dL (31.0-37.0); MEAN CORPUSCULAR VOLUME 91.5 fL (80.0-94.0); MEAN PLATELET VOLUME 7.3 fl (7.4-10.4); MONOCYTES % 9.3 % (2.0-8.0); NEUTROPHILS % 62.8 % (40.0-76.0); PLATELET 239 x1000/uL (130-400); RED BLOOD CELL COUNT 4.34 mill/uL (4.7-6.1); RED CELL DISTRIBUTION WIDTH 15.9 % (11.6-14.6); WHITE BLOOD COUNT 5.9 x1000/uL (4.5-11.0)
[2024-10-07 07:39] LABS: CREATININE 0.8 mg/dL (0.6-1.3); GLUCOSE 87 mg/dL (70-105); UREA NITROGEN BLOOD 12 mg/dL (9-23)
[2024-10-07 07:41] LABS: ALANINE AMINOTRANSFERASE 19 IU/L (10-49); ALBUMIN 4.1 g/dL (3.2-4.8); ASPARTATE AMINOTRANSFERASE 22 IU/L (<34); BILIRUBIN DIRECT 0.1 mg/dL (<=3.0); BILIRUBIN TOTAL 0.4 mg/dL (0.1-1.0); PROTEIN TOTAL 6.3 g/dL (6.0-8.3)
[2024-10-07] MEDS ORDERED: POLY17PO3 MT (08:31)
== END 2024-10-07 08:52 | disposition home or self-care (01) ==
LOC: ER 05:10
DX: N28.1 Cyst of kidney, acquired (principal); R10.9 Unspecified abdominal pain; Z79.899 Other long term (current) drug therapy
CPT/HCPCS: 36415; 74176; 80048; 80076; 85025; 99284